=== PATIENT | male | born 1985 | race Caucasian/White ===

== ENCOUNTER 2019-09-25 11:03 | Emergency (ER) | payer SELFPAY ==
[~2019-09-25] VITALS: Ht 185.4 cm; Wt 86.2 kg
[2019-09-25 11:12] VITALS: BP 112/79
--- NOTE | 2019-09-25 11:16 | NUR ---
PATIENT LEFT WITHOUT BEING SEEN BY DR. BELLA. PT GOT UP FROM [facility] AND STATED HE ONLY WANTED A RIDE TO [facility]. PT DOES NOT WISH TO BE SEEN BY DOCTOR. NO FURTHER CARE PROVIDED FOR PATIENT.
--- NOTE | 2019-09-25 11:16 | NUR ---
PT ELOPED. CHARGE NURSE NOTIFIED.
== END 2019-09-25 11:16 | disposition left against medical advice (07) ==
LOC: MED 11:03
DX: R55 Syncope and collapse (principal); Z53.21 Procedure and treatment not carried out due to patient leaving prior to being seen by health care provider

== ENCOUNTER 2023-07-21 00:45 | Emergency (ER) | payer SELFPAY ==
[~2023-07-21] VITALS: Ht 180.3 cm; Wt 106.6 kg
[2023-07-21 00:50] VITALS: BP 122/82; PULSE 87; RESP 17; TEMP 97.7; TEMP 98; O2SAT 97
[2023-07-21 01:33] VITALS: BP 122/82; PULSE 87; RESP 17; O2SAT 97
== END 2023-07-21 01:33 | disposition home or self-care (01) ==
LOC: MED 00:45
DX: R07.89 Other chest pain (principal)
CPT/HCPCS: 93005; 99283